=== PATIENT | female | born 1970 | race Caucasian/White ===

== ENCOUNTER → 2020-05-23 | Outpatient (CLI) | payer OTHER ==
[~2020-05-23] MED LIST: HYDR25TA6 PO; TOPI25TA32 PO
[2020-05-23 11:54] LABS: ANION GAP 7 mmol/L (5-15); CALCIUM 9.2 mg/dL (8.5-10.1); CHLORIDE 107 mmol/L (98-107)
[2020-05-23 11:58] LABS: ALANINE AMINOTRANSFERASE 26 U/L (12-78); ALKALINE PHOSPHATASE 80 U/L (45-117); BILIRUBIN,TOTAL 0.3 mg/dL (0.2-1.0); CREATININE 1.12 mg/dL (0.55-1.02); TOTAL PROTEIN 7.5 g/dL (6.4-8.2)
== END | disposition home or self-care (01) ==
LOC: STAR 10:15
PROVIDERS: ATTEND Obstetrics & Gynecology Female Pelvic Medicine and Reconstructive Surgery
DX: Z01.818 Encounter for other preprocedural examination (principal); Z11.59 Encounter for screening for other viral diseases; D25.0 Submucous leiomyoma of uterus; R10.2 Pelvic and perineal pain; N39.3 Stress incontinence (female) (male); N92.6 Irregular menstruation, unspecified
CPT/HCPCS: 36415; 80053; 87635

== ENCOUNTER 2020-05-27 10:29 | Day surgery (SDC) | payer OTHER ==
[~2020-05-27] VITALS: Ht 175.3 cm; Wt 80.1 kg
[~2020-05-27 10:29] MED LIST changes: +BUPIVACAINE/PF 0.25% ONE; +GENTAMICIN 80 MG/2 ML ONE; +VANCOMYCIN 500 MG ONE
[2020-05-27] MEDS ORDERED: LACTATED RINGERS 1,000 ML IV SCH (11:01)
[2020-05-27] MEDS ORDERED: CHLORHEXIDINE 15 ML UDC MM STA (11:01)
[2020-05-27 11:02] VITALS: BP 114/77
[2020-05-27] MEDS ORDERED: CHLORHEXIDINE 15 ML UDC ONE (11:07)
[2020-05-27 12:11] LABS: HCG UR SG 1.013 (1.003-1.030)
[2020-05-27] MEDS ORDERED: MIDAZOLAM 1 MG/ML, 2ML ONE (12:22)
[2020-05-27] MEDS ORDERED: FENTANYL PF 100 MCG/2ML ONE ×2 (12:22→16:12)
[2020-05-27] MEDS ORDERED: KETOROLAC 30 MG/1 ML ONE (14:07)
[2020-05-27] MEDS ORDERED: MEPERIDINE/PF 25MG/0.5ML IVPush PRN (14:30)
[2020-05-27] MEDS ORDERED: OXYcodone 5 MG/5 ML ORAL.SOL UDC PO PRN (14:30)
[2020-05-27] MEDS ORDERED: DIAZEPAM 5 MG/ML, 2ML IVPush PRN (14:30)
[2020-05-27] MEDS ORDERED: LABETALOL 5MG/ML, 20ML IV PRN (14:30)
[2020-05-27] MEDS ORDERED: PROMETHAZINE 25 MG/ML, 1ML IVPush PRN (14:30)
[2020-05-27] MEDS ORDERED: HYDROmorphone 1 MG/ML, 1ML INJ IVPush PRN (14:30)
[2020-05-27] MEDS ORDERED: DIPHENHYDRAMINE 50 MG/ML, 1ML IVPush PRN (14:30)
[2020-05-27] MEDS ORDERED: ONDANSETRON 2MG/ML, 2ML IVPush PRN (14:30)
[2020-05-27] MEDS ORDERED: hydrALAzine 20 MG/ML, 1ML IV PRN (14:30)
[2020-05-27] MEDS ORDERED: ACETAMINOPHEN 325 MG TABLET PO PRN (14:30)
[2020-05-27] MEDS ORDERED: LIDOCAINE-MPF 2% ,5ML ONE (15:05)
[2020-05-27] MEDS ORDERED: PROPOFOL 10 MG/ML, 20ML ONE (15:05)
[2020-05-27] MEDS ORDERED: ROCURONIUM 10MG/ML,5ML ONE (15:05)
[2020-05-27] MEDS ORDERED: CEFAZOLIN 1,000 MG ONE ×2 (15:05)
[2020-05-27] MEDS ORDERED: DEXAMETHASONE 4 MG/ML, 1ML ONE ×2 (15:05)
[2020-05-27] MEDS ORDERED: ONDANSETRON 2MG/ML, 2ML ONE (15:05)
[2020-05-27] MEDS ORDERED: NEOSTIGMINE 1 MG/ML, 10ML ONE (15:06)
[2020-05-27] MEDS ORDERED: GLYCOPYRROLATE 0.2MG/1ML, 5ML ONE (15:06)
[2020-05-27] MEDS ORDERED: OXYcodone 5 MG/5 ML ORAL.SOL UDC ONE (16:12)
[2020-05-27] MEDS: FENTANYL PF 100 MCG/2ML IV PRN ×2 (16:15→16:27)
== END 2020-05-27 18:05 | disposition home or self-care (01) ==
LOC: OUT 10:29
PROVIDERS: ATTEND Obstetrics & Gynecology Female Pelvic Medicine and Reconstructive Surgery
DX: N93.8 Other specified abnormal uterine and vaginal bleeding (principal); D25.1 Intramural leiomyoma of uterus; N39.46 Mixed incontinence; I10 Essential (primary) hypertension; G43.909 Migraine, unspecified, not intractable, without status migrainosus; F12.90 Cannabis use, unspecified, uncomplicated; Z98.890 Other specified postprocedural states; Z90.49 Acquired absence of other specified parts of digestive tract; Z79.899 Other long term (current) drug therapy; Z72.89 Other problems related to lifestyle; Z87.891 Personal history of nicotine dependence; Z82.49 Family history of ischemic heart disease and other diseases of the circulatory system; Z83.3 Family history of diabetes mellitus
CPT/HCPCS: 57282; 57288; 58552; 81025; 88307; C1771; J0690; J1100; J1580; J1885; J2250; J2405; J2704; J2710; J3010; J3370; J3490; J7120

== ENCOUNTER 2021-03-10 15:51 | Emergency (ER) | payer OTHER ==
[~2021-03-10] VITALS: Ht 175.3 cm; Wt 82.0 kg
[~2021-03-10 15:51] MED LIST changes: -BUPIVACAINE/PF 0.25% ONE; -GENTAMICIN 80 MG/2 ML ONE; -VANCOMYCIN 500 MG ONE
[2021-03-10 16:31] LABS: BASOPHILS % (AUTO) 1 % (0-1); EOSINOPHILS % (AUTO) 2 % (1-7); LYMPHOCYTES % (AUTO) 32 % (22-44); MEAN CORPUSCULAR HEMOGLOBIN 30.2 pg (27.0-34.8); MEAN CORPUSCULAR HGB CONC 34.7 g/dL (32.4-35.8); MEAN PLATELET VOLUME 7.5 fL (7.4-10.4); MONOCYTES % (AUTO) 8 % (2-9); NEUTROPHILS % (AUTO) 57 % (42-75); PLATELET COUNT 462 x10^3/uL (130-400); RED BLOOD COUNT 5.14 x10^6/uL (3.82-5.3); RED CELL DISTRIBUTION WIDTH 13.2 % (9.6-15.2)
[2021-03-10 16:38] LABS: ALBUMIN 3.5 g/dL (3.4-5.0); ANION GAP 8 mmol/L (5-15); CALCIUM 8.6 mg/dL (8.5-10.1); CHLORIDE 111 mmol/L (98-107)
[2021-03-10 16:42] LABS: TROPONIN I < 0.015 ng/mL (0.000-0.045)
[2021-03-10] MEDS ORDERED: BENZONATATE 100 MG CAPSULE ONE (17:29)
[2021-03-10] MEDS ORDERED: KETOROLAC 60 MG/2 ML ONE (17:29)
[2021-03-10] MEDS ORDERED: KETOROLAC 30 MG/1 ML IM ONE (17:30)
[2021-03-10] MEDS ORDERED: BENZONATATE 100 MG CAPSULE PO ONE (17:30)
[2021-03-10] MEDS ORDERED: ALBUTEROL SULFATE 2.5 MG/3 ML ONE (17:30)
[2021-03-10] MEDS ORDERED: ALBUTEROL SULFATE 2.5 MG/3 ML NPPB ONE (17:30)
--- NOTE | 2021-03-10 17:55 | NUR ---
PT IN [facility] GOWN. PT PLACED ON CARDIAC AND VITALS MONITORS. ORDERED MEDS AND RESP TX GIVEN. WILL CONTINUE TO MONITOR.
[2021-03-10 17:56] VITALS: BP 125/82
== END 2021-03-10 19:00 | disposition home or self-care (01) ==
LOC: ED 16:21
DX: J98.01 Acute bronchospasm (principal); J12.9 Viral pneumonia, unspecified; R07.89 Other chest pain; R00.0 Tachycardia, unspecified; Z87.891 Personal history of nicotine dependence
CPT/HCPCS: 36415; 71045; 80048; 82040; 84484; 85025; 85379; 93005; 94640; 96372; 99285; J1885; J7613

== ENCOUNTER → 2021-05-16 | Outpatient (CLI) | payer OTHER | END | disposition home or self-care (01) | LOC: CVU 08:55 | PROVIDERS: ATTEND Family Medicine | DX: I35.8 Other nonrheumatic aortic valve disorders (principal); I11.9 Hypertensive heart disease without heart failure; R53.82 Chronic fatigue, unspecified; R05 Cough; Z86.16 Personal history of COVID-19 | CPT/HCPCS: 93306 ==